=== PATIENT | male | born 1985 | race Caucasian/White ===

== ENCOUNTER 2019-09-18 18:00 | Emergency (ER) | payer OTHER ==
[~2019-09-18] VITALS: Ht 175.3 cm; Wt 68.1 kg
[2019-09-18 18:04] VITALS: BP 130/86
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
[2019-09-18] MEDS ORDERED: KETOROLAC 60 MG/2 ML VIAL. IM ONE (18:30)
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
== END 2019-09-18 18:50 | disposition home or self-care (01) ==
LOC: ER 18:00
DX: S57.82XA Crushing injury of left forearm, initial encounter (principal); S50.852A Superficial foreign body of left forearm, initial encounter; Z72.0 Tobacco use; W23.0XXA Caught, crushed, jammed, or pinched between moving objects, initial encounter; Y93.89 Activity, other specified; Y92.89 Other specified places as the place of occurrence of the external cause; Y99.8 Other external cause status
CPT/HCPCS: 73090; 73130; 96372; 99284; J1885